=== PATIENT | female | born 1990 | race Caucasian/White ===

== ENCOUNTER 2019-09-14 19:30 | Inpatient (IN) | payer OTHER ==
[2019-09-14] MEDS ORDERED: Acetaminophen 500 MG TAB PO PRN (19:53)
[2019-09-14] MEDS ORDERED: Diphenoxylate HCl/Atropine Tablet PO PRN (19:53)
[2019-09-14] MEDS ORDERED: Lidocaine 1% (PF) 30 ML VIAL SC PRN (19:53)
[2019-09-14] MEDS ORDERED: Ondansetron PF 4 MG/2 ML Vial IVP PRN (19:53)
[2019-09-14] MEDS ORDERED: hydrALAZINE 20 MG/ML VIAL SLOW IVP PRN (19:53)
[2019-09-14] MEDS ORDERED: Ibuprofen 800 MG TAB PO PRN (19:53)
[2019-09-14] MEDS ORDERED: NS / Oxytocin 40 units/1000ml 1,000 ML IV PRN (19:53)
[2019-09-14] MEDS ORDERED: Carboprost 250 MCG/ML AMP IM PRN (19:53)
[2019-09-14] MEDS ORDERED: HYDROcodone/Acetaminophen 5/325 mg Tablet PO PRN (19:53)
[2019-09-14] MEDS ORDERED: Misoprostol 200 MCG TAB PR PRN (19:53)
[2019-09-14] MEDS ORDERED: Promethazine HCl 25 MG/ML VIAL IM PRN (19:53)
[2019-09-14] MEDS ORDERED: Zolpidem Tartrate 5 MG TAB PO PRN (19:53)
[2019-09-14 20:27] VITALS: BMI 43.2
[2019-09-14 21:39] LABS: Bilirubin Negative (Negative); Blood, Urine 1+ (Negative); Clarity Clear (Clear); Glucose, Urine (Dipstick) Normal (Negative); Leukocyte Negative Leu/uL (Negative); Nitrite Negative (Negative); Protein, Urine (Dipstick) 20 mg/dL (Neg-Trace); Urobilinogen Normal mg/dL (Less than 2); WBC/HPF 0-3 HPF (0-3)
[2019-09-14 21:40] LABS: Bacteria/HPF 1+ HPF (None Seen)
[2019-09-14] MEDS: Lactated Ringer's 1,000 ML IV SCH (21:45)
[2019-09-14] MEDS: Misoprostol 100 MCG TAB VAG SCH (21:45)
[2019-09-14 22:26] LABS: ALT (SGPT) 12 U/L (8-55); AST (SGOT) 15 U/L (5-34); Albumin 3.4 g/dL (3.5-5.0); Alkaline Phosphatase 97 U/L (40-110); Anion Gap 12 mmol/L (10-20); BUN (Urea Nitrogen) 5 mg/dL (7.0-18.7); Bilirubin, Total 0.5 mg/dL (0.2-1.2); Calc. Creatinine Clearance 243 mL/min (70-130); Calcium 8.9 mg/dL (7.8-10.44); Carbon Dioxide 24 mmol/L (22-29); Chloride 104 mmol/L (98-107); Estimated GFR-MDRD Greater than 90; Glucose 105 mg/dL (70-105); Potassium 3.5 mmol/L (3.5-5.1); Protein, Total 6.4 g/dL (6.0-8.3); Sodium 136 mmol/L (136-145)
[2019-09-14 22:33] LABS: Hemoglobin 11.2 g/dL (12.0-16.0); Mean Corpuscular Hemoglobin 30.9 pg (27.0-31.0); Mean Corpuscular Volume 90.8 fL (78.0-98.0); Mean Platelet Volume 8.2 fL (7.4-10.4); Platelet Count 207 thou/uL (130-400); RBC Distribution Width 12.1 % (11.5-14.5); Red Blood Cell (RBC) Count 3.62 mill/uL (4.20-5.40); White Blood Cell (WBC) Count 11.9 thou/uL (4.8-10.8)
[2019-09-14 22:37] LABS: Syphilis Antibody Nonreactive (Nonreactive); Syphilis Antibody Index 0.05 S/CO (<1.00 Non-Reactive)
[2019-09-14 23:21] LABS: HBSAg Index 0.16 S/CO (0-0.99); Hep B Surf Ag Non-Reactive S/CO (NonReactive)
[2019-09-15] MEDS: Misoprostol 100 MCG TAB VAG SCH ×7 (00:52→23:05)
[2019-09-15] MEDS: Lactated Ringer's 1,000 ML IV SCH ×3 (05:55→23:05)
--- NOTE | 2019-09-15 08:04 | PDOC.LDHP ---
Labor and Delivery H&P Chief complaint: scheduled induction HPI: 28yo at 37w1d by LMP here for IOL due to Mild preeclampsia and SUA. Some cramps. +FM. Current gestational age (weeks): 37 Due date: 10/05/19 Dating criteria: last menstrual period Grav: 2 Para: 0 Current complications: preeclampsia without severe features Abnormal US findings: Yes (single umbilical artery) Past Medical History: obesity Current medications: pre-flakito vitamins Previous surgical history: other (anus surgery, shoulder surgery, wisdom teeth, T&A) Allergies/Adverse Reactions: Allergies Allergy/AdvReac Type Severity Reaction Status Date / Time Sulfa (Sulfonamide Allergy Intermediate Hives Verified 09/14/19 20:04 Antibiotics) Social history: none - Physical Exam Vital signs reviewed and normal: yes General: NAD Heart: RRR Lungs: CTAB Abdomen: gravid Extremeties: no edema FHT: category 1 - Vaginal Exam cm dilated: 1 Effacement: 50% Station: -2 (cook balloon placed 60/60) - OB Labs Blood type: O RH: positive Antibody Screen: negative HIV: negative RPR: negative HEPSAg: negative 1 hour GCT: negative GBS: negative Urine drug screen: negative Rubella: immune - Assessment L&D Assessment: medically indicated induction - Plan Plan: admit to L&D, cervical ripening, labor augmentation if indicated, informed consent obtained, anesthesia consult for pain management -: Labs wnl, no sx PIH, mag for severe features. increase fluid in cook balloon to 80/80 in 1hr, start low dose pit.
[2019-09-15] MEDS: Butorphanol Tartrate 1 MG/ML VIAL SLOW IVP PRN ×6 (08:14→18:06)
[2019-09-15] MEDS: NS w/ Oxytocin 10 units 500 ML IV SCH ×2 (08:15→23:06)
[2019-09-15] MEDS ORDERED: Bupivacaine HCl 0.25%/Epi 0.0005/PF 10 ML VIAL FS ONE (11:11)
[2019-09-15] MEDS ORDERED: Fentanyl 4 mcg/Bup 0.1% Cadd 100 ML ONE (18:29)
[2019-09-15] MEDS ORDERED: Fentanyl 100 MCG/2 ML VIAL ONE (19:26)
[2019-09-15] MEDS ORDERED: Ondansetron PF 4 MG/2 ML Vial IVP PRN ×2 (20:06→23:07)
[2019-09-15] MEDS ORDERED: Acetaminophen 325 MG TAB PO PRN (20:06)
[2019-09-15] MEDS ORDERED: ePHEDrine/0.9% NaCl/PF SYRINGE 50 mg/10 ml SLOW IVP PRN (20:06)
[2019-09-15] MEDS ORDERED: Naloxone HCl 0.4 mg/ml Vial IVP PRN ×2 (20:06)
[2019-09-15] MEDS ORDERED: Lactated Ringer's 500 ML IV PRN (20:06)
[2019-09-15] MEDS ORDERED: diphenhydrAMINE 50 MG/ML VIAL IVP PRN (20:06)
[2019-09-15] MEDS ORDERED: Promethazine HCl 25 MG/ML VIAL IM PRN (20:06)
[2019-09-15] MEDS ORDERED: Fentanyl 100 MCG/2 ML VIAL EPIDURAL PRN (20:06)
[2019-09-15] MEDS ORDERED: Communication Order-Pharmacy FS SCH (20:15)
[2019-09-15] MEDS ORDERED: Fentanyl 4 mcg/Bupivacaine 0.1% Cassette 100 ML EPIDURAL SCH (20:15)
--- NOTE | 2019-09-15 22:06 | PDOC.LDPN ---
Labor & Delivery Progress Note - Subjective Subjective: vaginal pressure - Objective Abnormal vital signs: mild range BPs General: NAD Uterine fundus: non tender Dilation: 4 Effacement: 50% Station: -2 (cook out, arom clear copious) FHT: category 1 [place] contractions every: 4min AROM: clear fluid Plan: pitocin for augmentation -: (late entry from 1700)
--- NOTE | 2019-09-15 22:08 | PDOC.OPDEL ---
OB Operative/Delivery Note Delivery Dr/Surgeon: Bam Assist: n/a Pre-Delivery Diagnosis: medically indicated induction (PEC, SUA, obesity) Procedure/Post Delivery Dx: spontaneous vaginal delivery Weeks gestation: 37 Anesthesia: epidural - Findings A Sex: female - 1 min: 8 - 5 min: 9 - Additional Findings/Plan Placenta delivered: spontaneous Repaired Obstetrical Laceration: 1st degree (repaired 2-0 chromic) Estimated blood loss: 300cc Post delivery plan: routine recovery
[2019-09-15] MEDS ORDERED: diphenhydrAMINE 25 MG CAP PO PRN (23:07)
[2019-09-15] MEDS ORDERED: Benzocaine-Menthol 82.5 ML CAN TOP PRN (23:07)
[2019-09-15] MEDS ORDERED: hydrALAZINE 20 MG/ML VIAL SLOW IVP PRN (23:07)
[2019-09-15] MEDS ORDERED: Preparation H Ointment 28 GM TUBE PR PRN (23:07)
[2019-09-15] MEDS ORDERED: Milk Of Magnesia 30 ML UDCUP PO PRN (23:07)
[2019-09-15] MEDS ORDERED: HYDROcodone/Acetaminophen 5/325 mg Tablet PO PRN ×2 (23:07)
[2019-09-15] MEDS ORDERED: Bisacodyl 10 MG SUPP PR PRN (23:07)
[2019-09-15] MEDS ORDERED: Lanolin Ointment 7 GM TUBE TOP PRN (23:07)
[2019-09-15] MEDS ORDERED: NS / Oxytocin 40 units/1000ml 1,000 ML IV SCH (23:07)
[2019-09-15] MEDS ORDERED: NS / Oxytocin 40 units/1000ml 1,000 ML ONE (23:14)
[2019-09-16] MEDS: Ibuprofen 800 MG TAB PO SCH ×3 (00:41→16:53)
--- NOTE | 2019-09-16 06:50 | PDOC.PP ---
Post Progress Note Post Day #: 1 Subjective: Patient doing well. No significant overnight events. Patient tolerating PO. Patient states that she is having some difficulty with . She does not feel the infant is latching well. Lochia minimal. PO intake tolerated: yes Flatus: yes Ambulation: yes Vital Signs (12 hours) Temp Pulse Resp BP Pulse Ox 09/16/19 05:00 98.8 F 83 16 128/76 09/16/19 02:17 98.4 F 69 18 121/63 09/16/19 01:30 98.8 F 82 18 09/16/19 00:25 98.5 F 78 18 140/65 97 Weight Weight 121.563 kg - Physical Examination General: NAD Cardiovascular: RRR Respiratory: non-labored breathing Abdominal: + bowel sounds, lochia, no distention, appropriately TTP Fundus firm & at: below umbilicus Skin: no rash Neurological: no gross focal deficits Psychiatric: A&Ox3, normal affect Result Diagrams: 09/14/19 22:27 09/14/19 21:38 Additional Labs: Post Labs Blood Type O POSITIVE 09/14/19 22:27 Hep Bs Antigen Non-Reactive S/CO (NonReactive) 09/14/19 21:38 (1) Term delivered Code(s): O80 - ENCOUNTER FOR FULL-TERM UNCOMPLICATED DELIVERY Status: Acute (2) Gestational HTN Code(s): O13.9 - GESTATIONAL HTN W/O SIGNIFICANT PROTEINURIA, UNSP TRIMESTER Status: Acute - Assessment/Plan Routine PP care - PPD #1 - Meeting all PP milestones - Difficulty with ; will ensure simulation specialist is consulted - Rh positive - GBS negative gHTN - IOL at 37.1 wks - BP high to 140/65 Dispo: Possible d/c home tomorrow.
[2019-09-16] MEDS: Ferrous Sulfate 325 MG TAB PO SCH ×2 (08:31→16:53)
[2019-09-16] MEDS ORDERED: Adacel (T-DAP) 0.5 ML SYRINGE IM ONE (09:00)
[2019-09-16] MEDS: Docusate Calcium (SURFAK) 240 MG CAP PO SCH ×2 (09:30→22:26)
[2019-09-17] MEDS: Ibuprofen 800 MG TAB PO SCH ×2 (04:18→05:37)
--- NOTE | 2019-09-17 06:58 | PDOC.PP ---
Post Progress Note Post Day #: 2 Subjective: 28 yo ->1 pp day 2. Successful IOL for elevated BP @ term. Pt >24 hrs without severe range BPs. No headache, cp, sob, nvdc, abd pain. Tolerating po, ambulating, pain well controlled, passing flatus. No concerns. PO intake tolerated: yes Flatus: yes Ambulation: yes Vital Signs (12 hours) Temp Pulse Resp BP Pulse Ox 09/16/19 23:50 98 F 70 16 139/66 09/16/19 20:25 98.8 F 76 20 134/64 98 Weight Weight 121.563 kg - Physical Examination General: NAD Cardiovascular: no m/r/g, RRR Respiratory: clear to auscultation bilaterally, non-labored breathing Abdominal: + bowel sounds, no distention, appropriately TTP Extremities: negative homans (B) Skin: no rash Neurological: no gross focal deficits Psychiatric: normal affect Result Diagrams: 09/14/19 22:27 09/14/19 21:38 Additional Labs: Post Labs Blood Type O POSITIVE 09/14/19 22:27 Hep Bs Antigen Non-Reactive S/CO (NonReactive) 09/14/19 21:38 (1) Gestational HTN Code(s): O13.9 - GESTATIONAL HTN W/O SIGNIFICANT PROTEINURIA, UNSP TRIMESTER Status: Acute (2) Term delivered Code(s): O80 - ENCOUNTER FOR FULL-TERM UNCOMPLICATED DELIVERY Status: Acute - Assessment/Plan Routine PP care - PPD #2 - Meeting all PP milestones - Rh positive - GBS negative gHTN - IOL at 37.1 wks - BP high to 139 systolic/76 diastolic last 24 hours stable and no severe pressures Dispo: Plan for DC to home today this afternoon.
[2019-09-17 08:58] VITALS: BP 124/62; TEMP 99
[2019-09-17] MEDS: Ferrous Sulfate 325 MG TAB PO SCH (09:03)
[2019-09-17] MEDS: Docusate Calcium (SURFAK) 240 MG CAP PO SCH (09:34)
== END 2019-09-17 13:15 | disposition home or self-care (01) | DRG 807 ==
LOC: L&D 19:37 → 3SW 09-16 00:39
PROVIDERS: ADMIT Student in an Organized Health Care Education/Training Program; ATTEND Student in an Organized Health Care Education/Training Program
PROC: 3E033VJ Introduction of Other Hormone into Peripheral Vein, Percutaneous Approach (ICD-10-PCS; principal; 2019-09-15)
PROC: 10E0XZZ Delivery of Products of Conception, External Approach (ICD-10-PCS; 2019-09-15)
PROC: 0HQ9XZZ Repair Perineum Skin, External Approach (ICD-10-PCS; 2019-09-15)
DX: O13.4 Gestational [pregnancy-induced] hypertension without significant proteinuria, complicating childbirth (principal); Z37.0 Single live birth; O99.214 Obesity complicating childbirth; Z3A.37 37 weeks gestation of pregnancy; O70.0 First degree perineal laceration during delivery
CPT/HCPCS: 36415; 51702; 80053; 81001; 85027; 86780; 86850; 86900; 86901; 87340; J0595; J2590; J3010